=== PATIENT | female | born 1990 | race African-American/Black ===

== ENCOUNTER → 2019-04-28 | Day surgery (SDC) | payer OTHER ==
--- NOTE | 2019-04-29 14:41 | PATH ---
Surgical Pathology Report Patient Name: JT LÓPEZ [facility]. Rec. #: [id number] /Age/Gender: 1990 (Age: 29) / F Account: [id number] Location: RADIOLOGY RUST Taken: 04/28/2019 Received: 04/28/2019 Reported: 04/29/2019 Physicians: Beba Kelley MD Specimen(s) Received RIGHT BREAST 2:00 CORE BIOPSY Clinical History Non-palpable lesion Ultrasound findings: Probably benign, suspicious Final Diagnosis BREAST, RIGHT, 2:00, MASS, US-GUIDED CORE BIOPSY: BENIGN BREAST TISSUE SHOWING FIBROADENOMA. (SEE NOTE). Note: Myoepithelial immunohistochemical markers (SMM-HC and p63, performed at [facility]) demonstrate the presence of myoepithelial cells in the lesion. This finding supports the diagnosis. Electronically Signed Nel Marin M.D. Gross Description Received in formalin labeled "right breast 2:00," are 5 riddle pink, cylindrical portions of fibroadipose tissue ranging from 0.5-0.7 cm in length and averaging 0.1 cm in diameter. The specimens are submitted in toto in one cassette. Time to formalin fixation: < 1 minute Total formalin fixation time: Approximately 9 hours. 04/28/2019 [facility]04/28/2019
== END | disposition home or self-care (01) ==
LOC: JRADUS-SUR 07:29 → JRAD 07:29
PROVIDERS: ATTEND Family Medicine
PROC: 0HBT3ZX Excision of Right Breast, Percutaneous Approach, Diagnostic (ICD-10-PCS; principal; 2019-04-28)
DX: D24.1 Benign neoplasm of right breast (principal); N63.12 Unspecified lump in the right breast, upper inner quadrant
CPT/HCPCS: 19083; 87899; 88305-TC; 88341-TC; 88342-TC; A4648